=== PATIENT | male | born 1955 | race Hispanic/Latino ===

== ENCOUNTER 2023-03-12 07:25 | Day surgery (SDC) | payer OTHER ==
[2023-03-10 12:41] LABS: BASOPHILS % (AUTO) 0.7 % (0.0-5.0); EOSINOPHILS % (AUTO) 3.1 % (0.0-8.0); HEMATOCRIT 41.7 % (42-54); LYMPHOCYTES % (AUTO) 41.4 % (21.0-51.0); MEAN CORPUSCULAR HEMOGLOBIN 30.4 pg (27.0-33.0); MEAN CORPUSCULAR HGB CONC 34.5 g/dL (32.0-36.0); MEAN CORPUSCULAR VOLUME 88.2 fL (79-99); MONOCYTES % (AUTO) 8.9 % (3.0-13.0); NEUTROPHILS % (AUTO) 45.8 % (40.0-77.0); PLATELET COUNT (AUTO) 178 K/uL (130-400); RED BLOOD CELL COUNT(AUTO) 4.73 MIL/uL (4.50-6.20); WHITE BLOOD COUNT (AUTO) 8.5 K/uL (4.8-10.8)
[2023-03-10 12:51] VITALS: BP 144/79; PULSE 79; RESP 18
[2023-03-10 12:52] LABS: CREATININE 1.1 mg/dL (0.5-1.5)
[2023-03-10 12:55] LABS: APPEARANCE,URINE CLEAR (CLEAR); BILIRUBIN,URINE NEGATIVE (NEGATIVE); COLOR,URINE LIGHT-YELLOW (YELLOW); GLUCOSE, URINE (UA) >=1000 mg/dL (NEGATIVE); KETONES,URINE NEGATIVE (NEGATIVE); LEUKOCYTE ESTERASE ,URINE NEGATIVE Leu/uL (NEGATIVE); NITRATE,URINE NEGATIVE (NEGATIVE); OCCULT BLOOD,URINE NEGATIVE (NEGATIVE); PROTEIN,URINE NEGATIVE (NEGATIVE); UROBILINOGEN,URINE 0.2 mg/dL (0.2-1.0)
[2023-03-10 12:56] LABS: INR 0.93 (0.85-1.15); PROTHROMBIN TIME 10.5 SEC (9.6-11.6)
[2023-03-10 12:57] LABS: PARTIAL THROMBOPLASTIN TIME 30.5 SEC (26.3-35.5)
[2023-03-10 13:01] LABS: RBC,URINE 0-1 /HPF (0-1); WBC,URINE 0-1 /HPF (0-1)
[2023-03-10 13:11] LABS: B-TYPE NATRIURETIC PEPTIDE 35 pg/mL (0-100)
[~2023-03-12] VITALS: Ht 165.1 cm; Wt 77.2 kg
[2023-03-12] VITALS (10 sets, daily range): BP systolic 128–151; BP diastolic 64–87; PULSE 63–84; RESP 12–18
[~2023-03-12 07:25] MED LIST: ALPR2TAB7 PO; ASCO500C18 PO; METF-444 PO; MULTIVITAMIN PO; OMEG-209 PO
[2023-03-12] MEDS ORDERED: 0.9%NACL 1000ML 1,000 ML IV ONE (07:53)
[2023-03-12] MEDS ORDERED: LIDOCAINE HCL 400MG/20ML VIAL ONE (13:03)
[2023-03-12] MEDS ORDERED: IOHEXOL-350 50ML VIAL IV ONE (13:04)
[2023-03-12] MEDS ORDERED: MIDAZOLAM HCL 1 MG/ML 2ML VIAL ONE (13:04)
[2023-03-12] MEDS ORDERED: NITROGLYCERIN 50MG VIAL ONE (13:04)
[2023-03-12] MEDS ORDERED: IOHEXOL 350 MG/ML 100ML INFUS..BTL IV ONE ×2 (13:04→13:22)
[2023-03-12] MEDS ORDERED: HEPARIN 10,000 UNIT/10ML (1,000 UNIT/ML) VIAL ONE (13:04)
[2023-03-12] MEDS ORDERED: FENTANYL CITRATE PF 50 MCG/1 ML 2ML VIAL ONE (13:04)
[2023-03-12] MEDS ORDERED: SODIUM BICARB 50MEQ 50ML VIAL 50 ML ONE (13:20)
[2023-03-12] MEDS ORDERED: IOHEXOL-350 75 ML VIAL IV ONE (13:22)
[2023-03-12] MEDS ORDERED: BIVALIRUDIN 250 MG/VIAL IV ONE (14:04)
[2023-03-12] MEDS ORDERED: 0.9%NACL 1000ML 1,000 ML IV SCH (14:30)
[2023-03-12] MEDS ORDERED: METO-408 PO (14:35)
[2023-03-12] MEDS ORDERED: NITR0.4T50 SL (14:35)
== END 2023-03-12 17:40 | disposition home or self-care (01) ==
LOC: DAH 07:25
PROVIDERS: ATTEND Internal Medicine Cardiovascular Disease
DX: I35.0 Nonrheumatic aortic (valve) stenosis (principal); I25.119 Atherosclerotic heart disease of native coronary artery with unspecified angina pectoris; I25.82 Chronic total occlusion of coronary artery; I10 Essential (primary) hypertension; E78.5 Hyperlipidemia, unspecified; E11.49 Type 2 diabetes mellitus with other diabetic neurological complication; E11.59 Type 2 diabetes mellitus with other circulatory complications; I45.10 Unspecified right bundle-branch block; F17.210 Nicotine dependence, cigarettes, uncomplicated; Z79.01 Long term (current) use of anticoagulants; Z79.899 Other long term (current) drug therapy; Z82.49 Family history of ischemic heart disease and other diseases of the circulatory system; Z79.84 Long term (current) use of oral hypoglycemic drugs
CPT/HCPCS: 80048; 83880; 85025; 85610; 85730; 81001; 36415; 71045; 93460; 82948 ×2; 93005; C1769; C1894 ×4; C1760; C1893; J3010; J3490 ×3; J7030; J2250; J1644; Q9967 ×3; A4215; A4222; A4221; A4663; A4216; A4606; Q9965; A4223 ×3; 99156; 99157; J0583